=== PATIENT | female | born 2000 | race Caucasian/White ===

== ENCOUNTER 2022-12-25 00:10 | Emergency (ER) | payer BC ==
[~2022-12-25] VITALS: Ht 165.1 cm; Wt 49.9 kg
[2022-12-25 00:15] VITALS: BP 104/58; PULSE 101; RESP 17; TEMP 98; O2SAT 97
[2022-12-25 01:10] VITALS: BP 104/58; PULSE 101; RESP 17; TEMP 98; O2SAT 97
== END 2022-12-25 01:10 | disposition home or self-care (01) ==
LOC: MED 00:10
DX: S01.01XA Laceration without foreign body of scalp, initial encounter (principal); W06.XXXA Fall from bed, initial encounter; Y93.89 Activity, other specified; Y92.89 Other specified places as the place of occurrence of the external cause; Y99.8 Other external cause status
CPT/HCPCS: 12001; 90471; 90715; 99283